=== PATIENT | female | born 1995 | race Caucasian/White ===

== ENCOUNTER 2020-07-15 10:40 | Emergency (ER) | payer BC, SELFPAY ==
[2020-07-15 10:57] VITALS: BP 112/80; PULSE 114; RESP 16; TEMP 36.8; O2SAT 100
[2020-07-15 10:59] VITALS: BP 112/80; PULSE 114; RESP 16; TEMP 36.8; O2SAT 100
--- NOTE | 2020-07-15 11:12 | ED.URI ---
HPI - URI/Sore Throat General Chief Complaint: Upper Respiratory Infection Stated Complaint: Sinus Time Seen by Provider: 07/15/20 11:10 Source: patient, RN notes reviewed and old records reviewed Mode of arrival: ambulatory Limitations: no limitations History of Present Illness HPI Narrative: 24-year-old female who presents to [facility] with 1 week duration of sinus pressure, sinus drainage, cough, sore throat, ear pain, and frontal headache. Patient states that she has been taking Sylvia Branch cold and congestion medication and Laura and Flonase with no improvement in her symptoms. Patient states that she has increase in her facial pressure and headache when she leans over. Flonase does not seem to be helping her sinus pressure and congestion and has used some Afrin nasal spray for the past 2-3 days which does seem to open up her sinuses. patient cautioned about Afrin use should only be used for no more that 2-3 day duration at a time that its use can cause rebound swelling of nasal passages. Patient denies any known fevers, chills or sweats, denies any acute dyspnea or CHAMBERS. MD elicited complaint: cough, sore throat and sinus pain Pertinent past history: sinusitis, seasonal allergies and other (sinus infection) Onset (ago): week(s) (1) Consistency: progressively worsening Severity: moderate Pain scale (0-10): 5 Description of mucous: green Able to tolerate fluids by mouth: Yes Exacerbating factors: nothing, exertion and leaning forward Relieving factors: nothing Associated symptoms: headache, rhinorrhea, nasal congestion, sore throat, cough and ear pain Treatments prior to arrival: cold medicine and other (flonase, Laura, Afrin) Related Data Home Medications Medication Instructions Recorded Confirmed Vyvanse 07/15/20 sertraline 07/15/20 Allergies Allergy/AdvReac Type Severity Reaction Status Date / Time cefaclor [From [facility]] Allergy Unknown Verified 07/15/20 10:57 Review of Systems Review of Systems: Narrative: CONSTITUTIONAL: Denies fever, chills, or sweats. EYES: Denies visual changes, redness, or discharge. ENT: Positive rhinorrhea, congestion,sinus pressure to face, sore throat, bilateral otalgia. CARDIOVASCULAR: Denies chest pain, palpitations, or edema. RESPIRATORY: positive intermittent productive cough of greenish tingled mucous denies dyspnea. GASTROINTESTINAL: Denies abdominal pain, nausea, vomiting, or diarrhea. GENITOURINARY: Denies dysuria or hematuria. SKIN: Denies rash or itching. MUSCULOSKELETAL: Denies back pain, joint pain, or myalgia. NEUROLOGIC: positive frontal headache, nonumbness, or weakness. PSYCHIATRIC: Denies anxiety or depression. All systems reviewed & are unremarkable except as noted in HPI and below PMFSH Past Medical History Medical History (Updated 07/15/20 @ 11:33 by Suzanne Trejo NP) Seasonal allergies Sinus infection Surgical History Surgical History (Updated 07/15/20 @ 13:57 by Suzanne Trejo NP) [place] teeth extracted Family History Family History (Updated 07/15/20 @ 13:58 by Suzanne Trejo NP) Father Diabetes mellitus Mother Hypertension Grandparent Heart disease Social History Social History (Updated 07/15/20 @ 13:58 by Suzanne Trejo NP) Smoking status: Never smoker Alcohol intake: current Alcohol use details: social Substance use: never Living arrangements: with friend(s) Gender identity (if verbalized by the patient): Female Comments At time of signature, agree with nursing past medical, surgical, social and family history. There is no relevant family history pertinent to the presenting complaint Exam Narrative: Exam Narrative: GENERAL: ill-appearing, well-nourished, and in no acute distress. HEAD: Normocephalic, atraumatic. EYES: PERRLA and EOMI. ENT: Nares red and swollen with rhinorrhea no epistaxis. Mucous membranes moist.Right TM red with effusion noted Left TM dull with no redness noted, throat red
== END 2020-07-15 11:36 | disposition home or self-care (01) ==
PROVIDERS: Emergency Provider Registered Nurse
DX: H65.01 Acute serous otitis media, right ear (principal); J01.40 Acute pansinusitis, unspecified
CPT/HCPCS: 99213; G0463